=== PATIENT | female | born 1950 | race Caucasian/White ===

== ENCOUNTER 2023-09-22 10:12 | Outpatient (CLI) | payer OTHER, SELFPAY ==
--- NOTE | 2023-09-22 10:30 | ECG_ITS ---
Measurements Intervals [place] Rate: 62 P: 56 OR: 143 QRS: 20 QRSD: 83 T: 22 QT: 392 QTc: 398 Interpretive Statements SINUS RHYTHM EARLY PRECORDIAL R/S TRANSITION BASELINE WANDER- I, II, III, AVR, AVL, AVF BORDERLINE ECG NO PREVIOUS ECG AVAILABLE FOR COMPARISON Electronically Signed On 09-22-2023 12:44:52 TRANSPORTATION SPECIALIST by Guille Kerr D.O.
== END 2023-09-22 10:13 | disposition home or self-care (01) ==
LOC: ANHSURGERY 10:18
PROVIDERS: PCP Family Medicine Sports Medicine; Visit Provider Plastic Surgery
DX: I10 Essential (primary) hypertension (principal); Z01.818 Encounter for other preprocedural examination; R94.31 Abnormal electrocardiogram [ECG] [EKG]
CPT/HCPCS: 93005

== ENCOUNTER 2023-09-24 02:57 | Day surgery (SDC) | payer OTHER, SELFPAY ==
--- NOTE | 2023-09-21 08:13 | PC.NURSE ---
Report to the Outpatient Waiting Room, entrance under the green pavilion located off [facility], at time _0645 on date _09/24/23 . Planned Procedure Time: __0845 . Time changes happen often and if your time is changed the preop area will call you the afternoon before. - You and your visitor will be asked to self-screen and do not enter if you have any COVID symptoms. - A mask is optional within the hospital at this time. NOTHING TO EAT OR DRINK 8 HOURS PRIOR TO SURGERY PER DR WHITE - Infants may have breast milk until 4 hours before surgery, infant formula 6 hours prior to surgery. - Children will be allowed to drink immediately following surgery. If applicable, please bring a bottle or sippy cup to assist with drinking. Juice, water, soda, and popsicles are readily available. For infants on formula, please bring formula the day of surgery. Pacifiers are allowed. Take the following medications with a SIP of water the morning of surgery: __ESCITALOPRAM ,LEVOTHYROXINE DO NOT STOP ANY OF YOUR OTHER PRESCRIPTION MEDICATIONS PRIOR TO SURGERY ?EXCEPT THE FOLLOWING Medications to discontinue per physician NONE Please no make-up, nail [place] citizen, hairspray, perfume, deodorant, or body powder the day of surgery. No jewelry (including any body piercings) or valuables the day of surgery, leave them at home. Please take a shower or bath the night before, or the morning of, surgery with an antibacterial soap. Wear comfortable, loose fitting clothing. Children are encouraged to wear pajamas. - Jewelry must be removed prior to entering the operating room. Rings and piercings that are not removed may be cut off. - The hospital will not accept responsibility for valuables. - Please leave all valuables, including medications, at home the day of surgery. If you are going home after surgery, a licensed lead driver must drive you home. - NO public transportation without another adult if you receive anesthesia. - We recommend that an adult stay with you for 24 hours following discharge. - We also recommend that you do not drive, make important decision, drink alcoholic beverages, or take any drugs that were not prescribed by your health care provider for at least 24 hours after your discharge time. Follow any additional instructions given to you from your surgeon. If you or anyone in your household have experienced Covid symptoms in the past week, please notify your surgeon or the nurse liaison at the phone number below for possible testing. Telephone instructions given to ___PATIENT and asked if any additional questions and then verbalized understanding. Patient advised to call surgeon office or pre surgery nurse liaison [phone] if any additional questions.
[2023-09-21 08:28] VITALS: BMI 29.5
[2023-09-24] VITALS (9 sets, daily range): BP systolic 128–166; BP diastolic 44–84; PULSE 64–83; RESP 12–92; TEMP 36.2–36.5; O2SAT 92–100
--- NOTE | 2023-09-24 06:59 | WPDHPUPDATE1 ---
History and Physical Update Update Date/Time: 09/24/23 06:59 Patient seen and examined in pre-operative holding area. No interval change in medical history or symptoms. Patient remembers previous discussion of benefits and alternatives to procedure. Continues to desire to proceed with bilateral breast reconstruction revision with left brest implant and capsule removal, local flaps and all necessary procedures. I reviewed the risks including but not limited to bleeding ,infection, asymmetry, seroma, undesireable cosmetic appearance, partial/total skin loss, no change or worsening of symptoms, change in sensation. I discussed the possible use of assistants and their level of participation in the case. Patient stated understanding and signed the consent form wishing to proceed
--- NOTE | 2023-09-24 07:00 | W.PM.PROC2 ---
Procedure Note - Detailed Date of Procedure 09/24/23 Pre-op Diagnosis aquired absence of bilat breast Post-op Diagnosis Same Procedure Performed b/l breast recon revision including left breast group exercise class instructor removal and capsulectomy Surgeon Rajesh Hannon MD Anesthesia General Description of Procedure INFORMED CONSENT: The patient was seen and examined and marked in the pre-op area.? The patient signed the consent form. PROCEDURE IN DETAIL:The patient taken back to OR and placed on the table in supine position. Time out performed with anesthesia, surgeon and staff agreeing on patient's name site and surgery to be performed SCDs were placed on the lower extremities and inflated. After general anesthesia was administered the breasts were prepped and draped in sterile fashion I first took my attention to the right breast where I proceeded with making an elliptical excision around her scared contracted skin through skin and dermis. Bovie was used to elevate skin flaps and circumferentailly dissect around the adherent scar tissue off of the chest wall. This resulted in a defect that was too tight and unable to be closed with primary closure even with extensive undermining. I was able extend incisions medially and laterally to be able to advance tissue for lateral torso and achieve closure with minimal tension. further subcutaneous tissue was resected to improve contour with gurwinder cautery. I irrigated with normal saline and hemostasis with bovie. I placed a 10 flat ISHMAEL drain into the cavity. I proceeded with closure using 2-0 vicryl for deep and fascial closure, 3-0 vicryl dermis and 4-0 monocryl for cubcuticular Next I took my attention to the left breast where I proceeded with elliptical excision around her previous mastectomy scar. Using bovie I proceeded with dissection through subq and skin flap elevation and performed total capsulectomy and tissue group exercise class instructor removal noting question of some biofilm and intracapsular thickened fluid. I scrubbed the tissue with a betadine soaked scrub brush. I trimmed excess skin flaps and sub, extending my incisions medially and laterraly and excising dog ears and matching the appearance and contour of the right breast. I irrigated with normal saline. hemostasis with bovie. I placed another 10 flat ISHMAEL drain and proceeded with closure using 2-0 and 3-0 vicryl for deep and dermis and 4-0 monocryl for subcuticular. I injected 20cc 1%Lido with epi and 0.5%marcaine plain among the operative sites. A dressing of mastisol, steri-strip, 4x4, tegaderm, abds and breast binder was applied. The patient was awaken from anesthesia and transferred to recovery in stable condition Complications - none EBL- 20cc Disposition - home in stable [place] [facility] [place] - Charge Forward: Surgery Billing ([id number], [id number], [id number], )
[2023-09-24] MEDS: LACTATED RINGERS 1,000 ML 30 ML IV CONT (07:50)
[2023-09-24] MEDS: SCOPOLAMINE 1.5 MG PATCH TRANSDERM (08:20)
--- NOTE | 2023-09-24 08:22 | P.PNAN_ITS ---
Anes - Initial Pre Proc Eval Procedure: Operation Date: 09/24/23 08:45 Proposed Procedures p Right Breast Reconstruction Revision, Possible Capsulectomy, Left Breast Tissue Rehab Department Manager Removal, Possible Left Implant Placement, Possible Capsulectomy,Possible Local Tissue Transfer - Rajesh Hannon MD Date/Time: 09/24/23 08:22 Surgeon: Rajesh Hannon MD Pre Op Diagnosis: aquired absence of bilat breast Patient Data Age: 72 Gender: F Height: 1.51 m Weight: 66 kg Last Vital Signs Temp 36.5 C 09/24/23 06:53 Pulse 64 09/24/23 06:53 Resp 18 09/24/23 06:53 BP 128/44 L 09/24/23 06:53 Pulse Ox 99 09/24/23 06:53 O2 Del Method Room Air 09/24/23 06:53 Allergies Allergy/AdvReac Type Severity Reaction Status Date / Time morphine Allergy Intermediate Nausea Verified 09/24/23 07:57 Home Medications Medication Instructions Recorded Confirmed Type escitalopram oxalate 10 mg tablet 10 mg PO DAILY 09/15/23 09/24/23 History (Lexapro) levothyroxine 88 mcg capsule 88 mcg PO DAILY 09/15/23 09/24/23 History lisinopril 10 1 tablet PO BID 09/15/23 09/24/23 History mg-hydrochlorothiazide 12.5 mg tablet rosuvastatin 10 mg tablet (Crestor) 10 mg PO HS 09/15/23 09/24/23 History clonidine HCl 0.2 mg tablet 0.2 mg PO HS 09/21/23 09/24/23 History cephalexin 500 mg capsule 500 mg PO Q8H #21 caps 09/24/23 Rx oxycodone-acetaminophen 5 mg-325 1 tablet PO Q6H PRN pain #14 tabs 09/24/23 Rx mg tablet Patient hx anesthesia problems: none Family hx anesthesia problems: none Results Review: All pre-operative results and documents have been reviewed as part of the pre- operative evaluation. FOR[facility]LY [facility], [facility] Social History Social History Smoking packs per day: 1 Smoking cigarettes per day: 20.0 Years smoked: 20 Smoking pack-years: 20.00 Smoking status: Former smoker Tobacco type: cigarettes Smoking end date: 10/25/19 Lack of Transportation: No Lack of Food: Never True Current Housing: I Have Housing Concerned About Future Housing: No Difficulty Paying Gas/Electric Bills: No Difficulty Paying for Meds: No Currently Unemployed: No Education: High School Diploma/GED Difficulty w/ Childcare or Family Care: No Living arrangements: with family Spiritual care concerns: No Anes - Eval Final PreProcedure Day of Procedure 09/24/23 08:22 Patient weight: overweight Heart: regular rate and rhythm Lungs: clear to auscultation Airway: Mallampati scale class II Neurological: alert and oriented Last oral intake: >/= 8 hours ASA classification: III Emergent: no Anesthetic plan: proceed Anesthesia type and monitoring: general LMA and standard monitoring Results Review: All pre-operative results and documents have been reviewed as part of the pre- operative evaluation. Informed Consent: The patient's anesthetic plan and its attendant risks and benefits were discussed with the patient/family/POA. Questions were solicited and answers provided to the satisfaction of the patient/family/POA.
[2023-09-24] MEDS: BUPivacaine HCL 0.5% PF 30 ML VIAL INFILTRATE (08:55)
[2023-09-24] MEDS: LIDO 1%/EPINEPHRINE 1:100,000 50 ML VIAL 15 ML INFILTRATE (08:56)
--- NOTE | 2023-09-24 09:40 | SUR.OPER ---
Breast specimens x 4 sent fresh for permanent with STEPHEN Bray and received in pathology by Hai.
[2023-09-24] MEDS: fentaNYL CITRATE INJ (*CRX) 100 MCG/2 ML VIAL 25 MCG IV PUSH ×7 (09:57→10:30)
[2023-09-24] MEDS: oxyCODONE HCL (*CRX) 2.5 MG TAB IR PO (11:30)
== END 2023-09-24 12:11 | disposition home or self-care (01) ==
PROVIDERS: PCP Family Medicine Sports Medicine; Visit Provider Plastic Surgery
PROC: (CPT 19380; principal; 2023-09-24 08:45)
DX: Z90.13 Acquired absence of bilateral breasts and nipples (principal); Z79.891 Long term (current) use of opiate analgesic; Z87.891 Personal history of nicotine dependence; Z85.3 Personal history of malignant neoplasm of breast
CPT/HCPCS: 19380; 19371; 88300; 88304; 88305; 93005; A9270; J1100; J2704; J3010; J7120